=== PATIENT | male | born 1985 ===

== ENCOUNTER 2024-04-17 04:59 | Emergency (ER) | payer BC ==
[2024-04-17] MEDS ORDERED: HYDROmorphone 1 MG/ML 1 ML SYRINGE ONE ×3 (05:47→12:04)
[2024-04-17] MEDS ORDERED: ONDANSETRON 4 MG/2 ML VIAL ONE (05:47)
[2024-04-17] MEDS ORDERED: KETOROLAC 15 MG/ML 1 ML VIAL ONE (05:47)
[2024-04-17] MEDS ORDERED: SODIUM CHLORIDE 0.9% 1,000 ML BAG ONE (05:59)
--- NOTE | 2024-05-11 14:24 | CT ---
Patient Mello Peralta ID [id number] Order # Procedure CT abdomen pelvis wo con EXAMINATION TYPE: CT abdomen and pelvis without contrast. CT DLP: 698 mGycm, Automated exposure control for dose reduction was used. DATE OF EXAM: 04/17/2024 9:52 AM COMPARISON: THIS EXAM WAS READ DURING PACS DOWNTIME, NO PRIORS AVAILABLE. CLINICAL INDICATION: Flank pain for 6 hours. TECHNIQUE: Axial CT abdomen pelvis without contrast.;Sagittal and coronal reformats were created on a separate workstation. Contrast used: mL of , (none if empty) Oral contrast used: (none if empty) FINDINGS: LOWER CHEST: Unremarkable ABDOMEN LIVER: Unremarkable GALLBLADDER AND BILE DUCTS: Unremarkable. PANCREAS: Unremarkable. SPLEEN: Unremarkable. ADRENAL GLANDS: Unremarkable. KIDNEYS AND URETERS: Mild right hydronephrosis secondary obstructing 3 mm thickness at the ureteroves icular junction. No left renal calculi no left hydronephrosis. No additional right renal calculi. PELVIS BLADDER: Unremarkable REPRODUCTIVE: Unremarkable. ABDOMEN & PELVIS STOMACH AND BOWEL: No evidence of bowel obstruction. PERITONEUM/RETROPERITONEUM: No evidence of pneumoperitoneum or free fluid. VASCULATURE: No evidence of aortic aneurysm. MUSCULOSKELETAL: No acute osseous abnormalities LYMPH NODES: No gross evidence for lymphadenopathy. SOFT TISSUE/ABDOMINAL WALL: Small fat-containing umbilical hernia. IMPRESSION: Mild right hydronephrosis secondary obstructing 3 mm calculus at the ureterovesicular junction. No le ft renal calculi no left hydronephrosis. No additional right renal calculi.
== END 2024-04-17 13:05 | disposition home or self-care (01) ==
LOC: MERGE 04:59 → EC 04:59
DX: N13.2 Hydronephrosis with renal and ureteral calculous obstruction (principal)
CPT/HCPCS: 74176; 96361; 96374; 96375; 96376; 99284